=== PATIENT | male | born 1980 | race Two or more races ===

== ENCOUNTER 2020-04-26 02:33 | Emergency (ER) | payer OTHER ==
[~2020-04-26] VITALS: Ht 170.2 cm; Wt 113.4 kg
--- NOTE | 2020-04-26 02:49 | NUR ---
PATIENT CAME TO THE ER BED 9 C/O LEFT LEG PAIN RADIATING TO THE LEFT CALF. PATIENT STATES THAT HE HAD GONE TO [facility] FOR THE SAME ISSUE YESTERDAY. PATIENT HAD RECEIVED XRAY AND ULTRASOUND ON THE LEFT LOWER EXTREMITYWHICH RESULTED NEGATIVE FOR DVT. PATIENT IS AAOX4. NO SOB .BREATHING EVENLY AND UNLABORED ON ROOM AIR. CONNECTED TO THE MONITOR.
--- NOTE | 2020-04-26 03:07 | NUR ---
BLOOD COLLECTED AND SENT TO THE LAB.
[2020-04-26 03:13] LABS: BASOPHILS # (AUTO) 0.1 /CMM (0.0-0.2); BASOPHILS % (AUTO) 1.7 % (0.0-2.0); EOSINOPHILS % (AUTO) 4.9 % (0.0-6.0); HEMATOCRIT 42 % (39-51); HEMOGLOBIN 14.1 g/dL (13.5-17.5); LYMPHOCYTES # (AUTO) 2.1 /CMM (0.8-4.8); LYMPHOCYTES % (AUTO) 30.1 % (20.0-44.0); MEAN CORPUSCULAR HGB CONC 34 g/dl (31.0-36.0); MEAN CORPUSCULAR VOLUME 85 fL (80-96); MONOCYTES # (AUTO) 0.7 /CMM (0.1-1.30); MONOCYTES % (AUTO) 10.4 % (2.0-12.0); NEUTROPHILS # (AUTO) 3.7 /CMM (1.8-8.9); NEUTROPHILS % (AUTO) 52.9 % (43.0-81.0); PLATELET COUNT (AUTO) 236 /CMM (150-450)
[2020-04-26 03:34] LABS: CARBON DIOXIDE 28 mmol/L (21-32); CHLORIDE 103 mmol/L (98-107); CREATININE 1.1 mg/dL (0.6-1.3); GLUCOSE 142 mg/dL (74-106); POTASSIUM 3.7 mmol/L (3.5-5.1); SODIUM SERUM 135 mmol/L (136-145); UREA NITROGEN, BLOOD 12 mg/dL (7-18)
[2020-04-26 03:47] LABS: ALANINE AMINOTRANSFERASE 47 U/L (12-78); ALBUMIN 3.5 g/dL (3.4-5.0); ALKALINE PHOSPHATASE 115 U/L (46-116); ASPARTATE AMINOTRANSFERASE 22 U/L (15-37); B-TYPE NATRIURETIC PEPTIDE 233 PG/ML (0-125); BILIRUBIN,DIRECT 0.1 mg/dL (0.0-0.2); BILIRUBIN,TOTAL 0.3 mg/dL (0.2-1.0); TOTAL PROTEIN, SERUM 7.3 g/dL (6.4-8.2)
[2020-04-26] MEDS ORDERED: KETOROLAC TROMETHAMINE INJ 30 MG/ML VIAL ONE (03:52)
--- NOTE | 2020-04-26 03:56 | NUR ---
US AT BEDSIDE
[2020-04-26] MEDS ORDERED: KETOROLAC TROMETHAMINE INJ 30 MG/ML VIAL IV ONE (04:00)
[2020-04-26] MEDS ORDERED: OXYC-121 PO (05:44)
--- NOTE | 2020-04-26 06:20 | NUR ---
Patient discharged to home in stable condition. Written and verbal after care instructions given. Patient verbalizes understanding of instruction. IV removed. Catheter intact and site benign. Pressure and 4x4 applied to site. No bleeding noted.
[2020-04-26 06:21] VITALS: BP 135/73
== END 2020-04-26 06:21 | disposition home or self-care (01) ==
LOC: ER 02:37
DX: M79.18 Myalgia, other site (principal); M79.662 Pain in left lower leg; I11.0 Hypertensive heart disease with heart failure; I50.9 Heart failure, unspecified; E11.9 Type 2 diabetes mellitus without complications
CPT/HCPCS: 36415; 71045; 80048; 80076; 83880; 84484; 85025; 85730; 93005; 93971; 96374; 99285; J1885

== ENCOUNTER 2021-06-08 21:53 | Emergency (ER) | payer OTHER ==
[~2021-06-08] VITALS: Ht 172.7 cm; Wt 117.9 kg
[2021-06-08 22:05] VITALS: BP 134/70
--- NOTE | 2021-06-08 22:05 | NUR ---
BIBRA 89 C/O RIGHT HIP PAIN RAD TO LOWER RIGHT LEG, STARTED TONIGHT TOOK TWO [employer]
[2021-06-08] MEDS ORDERED: DEXAMETHASONE SOD PHOSPHATE 10 MG/ML VIAL ONE (22:30)
[2021-06-08] MEDS ORDERED: MORPHINE SULFATE INJ 4 MG/ML DISP.SYRIN ONE ×2 (22:30→23:50)
[2021-06-08] MEDS ORDERED: CARISOPRODOL 350 MG TABLET PO ONE (22:30)
[2021-06-08] MEDS ORDERED: DEXAMETHASONE SOD PHOSPHATE 4 MG/ML VIAL IM ONE (22:30)
[2021-06-08] MEDS ORDERED: MORPHINE SULFATE INJ 2 MG/ML DISP.SYRIN IM ONE (22:30)
[2021-06-08] MEDS ORDERED: CARISOPRODOL 350 MG TABLET ONE (22:30)
[2021-06-08] MEDS ORDERED: IBUP-1957 PO (22:34)
[2021-06-08] MEDS ORDERED: CARI350T PO (22:34)
[2021-06-08] MEDS ORDERED: PRED50TA PO (22:34)
[2021-06-08] MEDS ORDERED: HYDR-4275 PO (22:34)
--- NOTE | 2021-06-08 23:30 | NUR ---
Patient discharged to home in stable condition. Written and verbal after care instructions given. Patient verbalizes understanding of instruction. 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
[2021-06-09] MEDS ORDERED: MORPHINE SULFATE INJ 2 MG/ML DISP.SYRIN IM ONE
--- NOTE | 2021-06-09 00:04 | NUR ---
Patient discharged to home in stable condition. Written and verbal after care instructions given. Patient verbalizes understanding of instruction. PICKED UP BY BROTHER
== END 2021-06-09 00:56 | disposition home or self-care (01) ==
LOC: ER 22:00
DX: M54.31 Sciatica, right side (principal); M62.838 Other muscle spasm; E66.01 Morbid (severe) obesity due to excess calories; I10 Essential (primary) hypertension; E11.9 Type 2 diabetes mellitus without complications; Z68.39 Body mass index [BMI] 39.0-39.9, adult; Z79.891 Long term (current) use of opiate analgesic; Z79.1 Long term (current) use of non-steroidal anti-inflammatories (NSAID); Z79.52 Long term (current) use of systemic steroids; Z79.899 Other long term (current) drug therapy
CPT/HCPCS: 96372 ×2; 99284; J1100; J2270 ×2

== ENCOUNTER 2021-07-09 14:33 | Emergency (ER) | payer OTHER ==
[~2021-07-09] VITALS: Ht 172.7 cm; Wt 111.1 kg
[~2021-07-09 14:33] MED LIST: CARI350T PO; HYDR-4275 PO; IBUP-1957 PO; PRED50TA PO
--- NOTE | 2021-07-09 15:00 | NUR ---
BIBPARENT C/O CHRONIC RT HIP PAIN. AMBULATORY, AAOX4, IN PAIN 10/04. PLACED ON BED
--- NOTE | 2021-07-09 15:10 | NUR ---
AT BED SIDE
[2021-07-09] MEDS ORDERED: CYCLOBENZAPRINE 10 MG TABLET PO ONE (15:30)
[2021-07-09] MEDS ORDERED: IBUPROFEN 400 MG TABLET PO ONE (15:30)
[2021-07-09] MEDS ORDERED: CYCLOBENZAPRINE 10 MG TABLET ONE (15:49)
[2021-07-09] MEDS ORDERED: IBUPROFEN 400 MG TABLET ONE (15:49)
[2021-07-09] MEDS ORDERED: IBUP-1957 PO (17:29)
[2021-07-09] MEDS ORDERED: CYCL10TA9 PO (17:29)
[2021-07-09 17:41] VITALS: BP 105/65
--- NOTE | 2021-07-09 17:41 | NUR ---
Patient discharged to home in stable condition. Written and verbal after care instructions given. Patient verbalizes understanding of instruction.
== END 2021-07-09 17:35 | disposition home or self-care (01) ==
LOC: ER 15:19
DX: M54.41 Lumbago with sciatica, right side (principal); I10 Essential (primary) hypertension; E11.9 Type 2 diabetes mellitus without complications; Z79.899 Other long term (current) drug therapy
CPT/HCPCS: 73502